=== PATIENT | female | born 1930 | race Caucasian/White ===

== ENCOUNTER 2017-02-13 10:13 | Emergency (ER) | payer OTHER ==
[~2017-02-13] VITALS: Ht 152.4 cm; Wt 54.4 kg
--- NOTE | 2017-02-13 10:20 | NUR ---
BIB SELF C/O DIARRHEA S/P TAKING LAXATIVE FOR CONSTIPATION, NAD NOTED, VSS, AAOX4, WAITIN FOR MD WERNER.
[2017-02-13 10:48] LABS: BASOPHILS # (AUTO) 0.2 /CMM (0.0-0.2); BASOPHILS % (AUTO) 1.9 % (0.0-2.0); EOSINOPHILS # (AUTO) 0.2 /CMM (0.0-0.7); EOSINOPHILS % (AUTO) 1.8 % (0.0-6.0); HEMATOCRIT 41 % (33-45); LYMPHOCYTES # (AUTO) 1.6 /CMM (0.8-4.8); LYMPHOCYTES % (AUTO) 16.7 % (20.0-44.0); MEAN CORPUSCULAR HEMOGLOBIN 27 PG (26.0-33.0); MEAN CORPUSCULAR HGB CONC 32 g/dl (31.0-36.0); MEAN CORPUSCULAR VOLUME 83 fL (82-100); MONOCYTES # (AUTO) 0.7 /CMM (0.1-1.30); MONOCYTES % (AUTO) 7.7 % (2.0-12.0); NEUTROPHILS # (AUTO) 6.7 /CMM (1.8-8.9); NEUTROPHILS % (AUTO) 71.9 % (43.0-81.0); PLATELET COUNT (AUTO) 202 /CMM (150-450); RDW COEFFICIENT OF VARIATION 15.2 (11.5-15.0); RED BLOOD CELL COUNT(AUTO) 4.92 MIL/uL (4.0-5.2); WHITE BLOOD COUNT (AUTO) 9.4 K/uL (4.3-11.0)
[2017-02-13 10:57] LABS: CALCIUM, SERUM 8.5 mg/dL (8.5-10.1); CARBON DIOXIDE 29 mmol/L (21-32); CHLORIDE 104 mmol/L (98-107); CREATININE 0.9 mg/dL (0.6-1.3); GLUCOSE 101 mg/dL (74-106); POTASSIUM 4.8 mmol/L (3.5-5.1); SODIUM SERUM 137 mmol/L (136-145); UREA NITROGEN, BLOOD 19 mg/dL (7-18)
[2017-02-13 10:58] LABS: LIPASE 146 U/L (73-393)
[2017-02-13] MEDS ORDERED: IV NS 0.9% 1,000 ML BAG IV ONE (11:00)
--- NOTE | 2017-02-13 11:40 | NUR ---
PT TO CTSCAN
[2017-02-13] MEDS ORDERED: IOHEXOL-300 100 ML VIAL IV ONE (11:44)
[2017-02-13] MEDS ORDERED: IV NS 0.9% 250 ML IV ONE (11:44)
--- NOTE | 2017-02-13 13:21 | NUR ---
IV removed. Catheter intact and site benign. Pressure and 4x4 applied to site. No bleeding noted.
--- NOTE | 2017-02-13 13:21 | NUR ---
Patient discharged to home in stable condition. Written and verbal after care instructions given. Patient verbalizes understanding of instruction.
[2017-02-13 13:22] VITALS: BP 145/86
== END 2017-02-13 13:23 | disposition home or self-care (01) ==
LOC: ER 10:15
DX: R19.7 Diarrhea, unspecified (principal); I10 Essential (primary) hypertension
CPT/HCPCS: 36415; 74160; 80048; 83690; 85025; 96360; 99285; 99406; A4606; J7030; J7050; Q9967; Z7610

== ENCOUNTER 2017-07-05 17:13 | Inpatient (IN) | payer OTHER ==
[~2017-07-05] VITALS: Ht 149.9 cm; Wt 67.1 kg
[2017-07-05] MEDS ORDERED: ONDANSETRON HCL/PF 4 MG/2 ML VIAL IVP ONE (17:30)
[2017-07-05] MEDS ORDERED: MORPHINE SULFATE INJ 2 MG/ML DISP.SYRIN IV ONE (17:30)
[2017-07-05] MEDS ORDERED: IV NS 0.9% 1,000 ML BAG IV ONE (17:30)
--- NOTE | 2017-07-05 17:34 | NUR ---
RECIEVED PT TO ED BED 10, PT WAS [id number] FROM [employer], LEFT HIP PAIN S/P GLF. NO KO. +LEFT LEG SHORTENING. A/OX3, NAD RR EVEN ADN UNLABORED. SKIN IS WARM AND NON DIAPHORETIC. SEEN AND EVALUATED BY DR KARIMI
[2017-07-05 17:52] LABS: BASOPHILS # (AUTO) 0.1 /CMM (0.0-0.2); BASOPHILS % (AUTO) 1.5 % (0.0-2.0); EOSINOPHILS % (AUTO) 0.2 % (0.0-6.0); HEMATOCRIT 40 % (33-45); HEMOGLOBIN 13.3 g/dL (11.5-14.8); LYMPHOCYTES # (AUTO) 0.9 /CMM (0.8-4.8); LYMPHOCYTES % (AUTO) 13.2 % (20.0-44.0); MEAN CORPUSCULAR HGB CONC 33 g/dl (31.0-36.0); MEAN CORPUSCULAR VOLUME 82 fL (82-100); MONOCYTES # (AUTO) 0.7 /CMM (0.1-1.30); MONOCYTES % (AUTO) 10.3 % (2.0-12.0); NEUTROPHILS # (AUTO) 5.5 /CMM (1.8-8.9); NEUTROPHILS % (AUTO) 74.8 % (43.0-81.0); PLATELET COUNT (AUTO) 156 /CMM (150-450); RDW COEFFICIENT OF VARIATION 14.2 (11.5-15.0); RED BLOOD CELL COUNT(AUTO) 4.87 MIL/uL (4.0-5.2); WHITE BLOOD COUNT (AUTO) 7.2 K/uL (4.3-11.0)
[2017-07-05 17:59] LABS: CALCIUM, SERUM 8.3 mg/dL (8.5-10.1); CARBON DIOXIDE 26 mmol/L (21-32); CHLORIDE 102 mmol/L (98-107); GLUCOSE 125 mg/dL (74-106); POTASSIUM 4.1 mmol/L (3.5-5.1); SODIUM SERUM 135 mmol/L (136-145); UREA NITROGEN, BLOOD 16 mg/dL (7-18)
[2017-07-05 18:07] LABS: TROPONIN I < 0.017 ng/mL (0.00-0.056)
[2017-07-05] MEDS ORDERED: MORPHINE SULFATE INJ 4 MG/ML DISP.SYRIN ONE (18:22)
[2017-07-05] MEDS ORDERED: ONDANSETRON HCL/PF 4 MG/2 ML VIAL ONE (18:22)
[2017-07-05 18:25] LABS: INR 1.01 (0.85-1.15)
--- NOTE | 2017-07-05 18:27 | NUR ---
LOW O2 SAT ROOM AIR NO DISTRESS. PLACED ON 2 LPM VIA NC
--- NOTE | 2017-07-05 18:27 | NUR ---
VERBAL ORDER DR KARIMI URINARY CATHETER
--- NOTE | 2017-07-05 19:02 | NUR ---
GAVE REPORT TO RO FOR [place]
--- NOTE | 2017-07-05 19:05 | NUR ---
I called [employer] and a panel call was placed. Moises Nunez couldnt be reached at this time and a page was sent out to him.
--- NOTE | 2017-07-05 19:20 | NUR ---
CHRISTIN Fontaine was called and Dr. Tobar was paged.
[2017-07-05 20:00] VITALS: BP 146/82
--- NOTE | 2017-07-05 20:05 | NUR ---
REPORT GIVEN TO KSENIA/ANA M ON BEHALF OF PRIMARY NURSE ADELSO. TO BE TRANSPORTED TO MS FLOOR.
--- NOTE | 2017-07-05 20:10 | NUR ---
MS/RN OPENING NOTES PT RECEIVED FROM ER VIA [facility], A/OX2. PLACED ON 2L O2 VIA NC, BREATHING EVEN AND UNLABORED. SOB NOTED WITH EXERTION OF TRANSFERRING FROM GURNEY TO BED. FRIEND, CONCEPCIÓN NEGRO [phone] AT BEDSIDE. IV TO RAC PATENT AND INTACT. GAXIOLA IN PLACE AND DRAINING TO GRAVITY. BED IN LOW/LOCKED POSITION WITH CALL LIGHT IN REACH. SIDE RAILS UPX2. ORIENTED PT TO ROOM AND CALL LIGHT. PER ER STAFF, DR CHAMBERS NOTIFIED AND ASKED TO KEEP PT NPO POST MIDNIGHT, WILL COME TO EVALUATE HER IN AM. WILL CONTINUE TO MONITOR
[2017-07-05] MEDS ORDERED: IV NS 0.9% 1,000 ML IV PRN (20:56)
[2017-07-05] MEDS ORDERED: MORPHINE SULFATE INJ 2 MG/ML DISP.SYRIN IV PRN (21:00)
[2017-07-05] MEDS ORDERED: ONDANSETRON HCL/PF 4 MG/2 ML VIAL IVP PRN (21:00)
[2017-07-05] MEDS ORDERED: ACETAMINOPHEN 325 MG TABLET PO PRN (21:00)
[2017-07-05] MEDS ORDERED: ZOLPIDEM TARTRATE 5 MG TABLET PO PRN (21:00)
[2017-07-05] MEDS ORDERED: Z GUARD REMEDY 2 OZ OINT TP PRN (21:00)
[2017-07-06] VITALS (7 sets, daily range): BP systolic 127–140; BP diastolic 55–80
--- NOTE | 2017-07-06 03:30 | NUR ---
MS/RN NOTES PT APPEARS ANXIOUS AND WITH LABORED BREATHING. PT "WANTS TO GET OUT OF HERE. LET ME JUST GET TO MY CAR". PT CONNECTED TO PULSE OX, SHOWING SPO2 87%. HOB ELEVATED FOR MAXIMAL LUNG EXPANSION AND INCREASED SPO2 TO 5L VIA SIMPLE MASK, SPO2 INCREASED TO 96%. REORIENTED PT AND EMOTIONAL SUPPORT PROVIDED. BREATHING RESUMED TO UNLABORED. PT FALLING BACK ASLEEP, WILL KEEP ON CONTINUOUS PULSE OX FOR MONITORING
[2017-07-06 06:41] LABS: BASOPHILS % (AUTO) 0.2 % (0.0-2.0); HEMATOCRIT 36 % (33-45); HEMOGLOBIN 12.1 g/dL (11.5-14.8); LYMPHOCYTES # (AUTO) 0.9 /CMM (0.8-4.8); LYMPHOCYTES % (AUTO) 9.6 % (20.0-44.0); MEAN CORPUSCULAR HGB CONC 34 g/dl (31.0-36.0); MEAN CORPUSCULAR VOLUME 83 fL (82-100); MONOCYTES # (AUTO) 0.9 /CMM (0.1-1.30); MONOCYTES % (AUTO) 9.6 % (2.0-12.0); NEUTROPHILS # (AUTO) 7.4 /CMM (1.8-8.9); NEUTROPHILS % (AUTO) 80.6 % (43.0-81.0); PLATELET COUNT (AUTO) 125 /CMM (150-450); RDW COEFFICIENT OF VARIATION 15.1 (11.5-15.0); RED BLOOD CELL COUNT(AUTO) 4.32 MIL/uL (4.0-5.2); WHITE BLOOD COUNT (AUTO) 9.2 K/uL (4.3-11.0)
[2017-07-06 07:09] LABS: CALCIUM, SERUM 7.8 mg/dL (8.5-10.1); CARBON DIOXIDE 25 mmol/L (21-32); CHLORIDE 103 mmol/L (98-107); CREATININE 0.9 mg/dL (0.6-1.3); GLUCOSE 121 mg/dL (74-106); MAGNESIUM 1.6 mg/dL (1.8-2.4); POTASSIUM 4.2 mmol/L (3.5-5.1); SODIUM SERUM 137 mmol/L (136-145); UREA NITROGEN, BLOOD 14 mg/dL (7-18)
--- NOTE | 2017-07-06 07:15 | NUR ---
RN NOTES: PATIENT RESTING IN BED. NONLABORED BREATHING NOTED ON 5 L FACIAL MASK. DENYING PAIN AT THE MOMENT. IV SITE ON RFA GAUGE 22 PATENT AND INTACT. HOD ELEVATED. BED IN LOWEST LOCKED POSITION. CALL LIGHT WITHIN REACH. WILL CONTINUE TO MONITOR
--- NOTE | 2017-07-06 07:15 | NUR ---
RN NOTES: PATIENT RESTING IN BED. NONLABORED BREATHING NOTED ON 5 L NASAL CANNULA. DENYING PAIN AT THE MOMENT. IV SITE ON RFA GAUGE 22 PATENT AND INTACT. HOD ELEVATED. BED IN LOWEST LOCKED POSITION. CALL LIGHT WITHIN REACH. WILL CONTINUE TO MONITOR
--- NOTE | 2017-07-06 07:36 | NUR ---
MS/RN CLOSING NOTES PT RESTING COMFORTABLY IN BED. CURRENTLY ON 5L O2 VIA SIMPLE MASK SPO2 97%. BREATHING IS EVEN AND UNLABORED AT THIS TIME. DENIES SOB, DENIES PAIN. REFUSING PAIN MEDICATION. IV PULLED OUT, REINSERTED TO RFA #22. WRAPPED WITH KERLIX. IVF ON HOLD AT THIS TIME. HOB ELEVATED FOR INCREASED LUNG EXPANSION. KEPT PT COMFORTABLE DURING THE SHIFT. ALL NEEDS MET. REORIENTED PRN. GAXIOLA IN PLACE AND DRAINING TO GRAVITY. BED IN LOW/LOCKED POSITION WITH CALL LIGHT IN REACH. SIDE RAILS UPX2. ENDORSED TO DAY SHIFT RN [place].
[2017-07-06 07:44] LABS: CHOLESTEROL 142 mg/dL (<200); HDL CHOLESTEROL 67 mg/dL (40-60); LDL 66 mg/dL (0-99); THYROID STIMULATING HORMONE 0.611 uIU/mL (0.358-3.74); TRIGLYCERIDES 56 mg/dL (30-150)
--- NOTE | 2017-07-06 09:49 | NUR ---
Social service consult requested by Dr. Nunez for homelessness and possible fracture. Pt. is a 87 year old female who was admitted to [facility] for Left hip fracture. SW met with pt. bedside. Pt. is alert and oriented x 4. Pt. is pleasant and cooperative with SW. Pt. states she is homeless and has been living in her car for the past two years. Prior to living in her car, pt. was living in her home. Home sold her home and lost money on it and has been homeless since then. Pt. has no family and has friends who provide some social support. Pt's emergency contact is her friend Stephanie Akbar . Pt. is willing to go to a [facility] facility for rehabilitation. meat and seafood manager Guerita is aware of pt's disposition. Pt. receives approximately $600/ month in SSI. Pt. stated she receives only $600 due to early nursing home. SW to offer pt. homeless resources prior to discharge. No other social service needs are requested at this time. SW is available, if needed.
[2017-07-06] MEDS ORDERED: FUROSEMIDE 20 MG/2 ML VIAL IV ONE (10:00)
[2017-07-06] MEDS ORDERED: diphenhydrAMINE HCL 50 MG/ML VIAL IV PRN (10:00)
--- NOTE | 2017-07-06 10:02 | NUR ---
RN NOTES: PER YVES ADKINS NP- ADONAY ORDERED. PER HER ORDERS AND DR BUENO OK TO ADMINISTER MAGNESIUM AND LASIX
[2017-07-06] MEDS: Magnesium 1GM/D5W 100ML PREMIX 100 ML IV SCH ×2 (11:16→12:45)
--- NOTE | 2017-07-06 12:10 | NUR ---
RN NOTES: SPOKE TO PATIENT'S FRIEND, MARY NEGRO. SHE RECALLS, PATIENT IS ALLERGIC TO SULFA AND PENICILLINS. NO ALLERGIC REACTIONS NOTED SO FAR. WILL CONTINUE TO MONITOR. PATIENT UNABLE TO RECALL HER ALLERGIES
--- NOTE | 2017-07-06 12:52 | NUR ---
WOUND CARE CONSULT: PT PRESENTS WITH LEFT BUTTOCK BRUISING, STAINING OF SKIN ON BUTTOCKS AND LOWER LEGS. LOWER LEGS AND FEET HAVE THICKENED DARK SKIN WITH DRYNESS AND DEBRIS. EDEMA NOTED TO LOWER LEGS WHICH IS RESOLVING WITH LEG ELEVATION. PT NOTED TO HAVE RASH TO LEFT BREASTFOLD AND REDNESS TO RT BREASTFOLD. ALL SKIN PROTECTION AND SKIN CARE RECOMMENDATIONS DISCUSSED WITH NURSING STAFF. PT ON ANIYA ISOFLEX LOW AIRLOSS BED. WILL SEE PRN. ZUNIGA IN AGREEMENT WITH PLAN OF CARE. Addendum: 07/06/17 at 1254 by MJ AREVALO WNDNU Amended: Links added.
[2017-07-06] MEDS ORDERED: VITAMINS A AND D 56.7 GM TUBE TP PRN (13:00)
--- NOTE | 2017-07-06 13:58 | NUR ---
RN NOTES: ADARSH ROSENBAUM, ALBUTEROL Q 4 HOURS PRN
[2017-07-06 14:05] LABS: APPEARANCE,URINE CLEAR (CLEAR); BILIRUBIN,URINE NEGATIVE (NEGATIVE); BLOOD, URINE 2+ Ery/uL (NEGATIVE); COLOR,URINE YELLOW (YELLOW); KETONES,URINE NEGATIVE (NEGATIVE); LEUKOCYTE ESTERASE ,URINE NEGATIVE (NEGATIVE); NITRITE, URINE NEGATIVE (NEGATIVE); PH,URINE 5.5 (5.0-8.0); PROTEIN,URINE NEGATIVE (NEGATIVE); UGLUCOSE NEGATIVE (NEGATIVE); UROBILINOGEN,URINE 0.2 EU/dL (0.2)
[2017-07-06 14:16] LABS: WBC,URINE 0-2 /HPF (0-3)
[2017-07-06 14:21] LABS: BACTERIA,URINE Few /HPF (None Seen); SQUAMOUS EPITHELIAL CELL,UR Few /HPF (None Seen)
[2017-07-06] MEDS: ALBUTEROL FS 2.5 MG/0.5 ML VIAL.NEB NEB PRN ×2 (14:42→20:37)
[2017-07-06] MEDS ORDERED: ACETYLCYSTEINE 10% SOLN 400 MG/4 ML VIAL NEB SCH (16:30)
--- NOTE | 2017-07-06 16:35 | NUR ---
RN NOTES: PER YVES ADKINS, MUCOMYST 200 MG (10% 4 ML) SOLUTION SCHEDULED
[2017-07-06] MEDS: CLOTRIMAZOLE 1% 15 GM TUBE TP SCH (17:20)
--- NOTE | 2017-07-06 17:36 | NUR ---
RN NOTES: PATIENT BACK ON 4 L NASAL CANNULA. INFORMED RT, LINDA, OF MUCOMYST ORDER
--- NOTE | 2017-07-06 17:39 | NUR ---
RN NOTES: MUCOMYST ORDER FREQUENCY CHANGED TO Q 4 HOUR PER KERSEY DEPARTMENT SUPERVISOR ORDERS. SPOKE WITH SHAYNA FROM PHARMACY
--- NOTE | 2017-07-06 18:00 | NUR ---
RN NOTES: PER YVES ADKINS, APPLY DVT PUMPS. MEDICAL CODING INSTRUCTOR NOTIFIED OF EDEMA PRESENT ON PATIENT'S LOWER EXTREMITIES. RESULTS PENDING FOR DUPLEX ON LOWER EXTREMITIES. PER YVES ADKINS, APPLY DVT PUMPS IF STUDY RESULTS ARE NEGATIVE AND THERE IS NO SIGNS OF DVT. ALSO PER MEDICAL CODING INSTRUCTOR, AGGRESSIVE PULMONARY TOILETING
--- NOTE | 2017-07-06 19:08 | NUR ---
RN NOTES: PER YVES ADKINS, ATIVAN 2 MG ONCE IF NEEDED ALSO PATIENT TO HAVE A SITTER
[2017-07-06] MEDS: ACETYLCYSTEINE 10% SOLN 400 MG/4 ML VIAL NEB SCH ×2 (19:30→20:37)
[2017-07-06] MEDS ORDERED: LORAZEPAM 1 MG TABLET PO ONE (19:30)
--- NOTE | 2017-07-06 19:30 | NUR ---
MS RN NOTE PATIENT RESTING IN BED. NONLABORED BREATHING NOTED ON 5 L FACIAL MASK. DENYING PAIN AT THE MOMENT. IV SITE ON RFA GAUGE 22 PATENT AND INTACT. HOB ELEVATED. SITTER AT BEDSIDE. BED IN LOWEST LOCKED POSITION. CALL LIGHT WITHIN REACH. WILL CONTINUE TO MONITOR
--- NOTE | 2017-07-06 19:30 | NUR ---
RN NOTES: PATIENT RESTING IN BED. NONLABORED BREATHING NOTED ON 5 L FACIAL MASK, PATIENT ON CONTINUOS OXYGEN MONITOR. DENYING PAIN AT THE MOMENT. IV SITE ON RFA GAUGE 22 PATENT AND INTACT. HOD ELEVATED. BED IN LOWEST LOCKED POSITION. PATIENT OFFERED DINNER NOW, REFUSING. OFFERED SNACKS WELL. PATIENT STILL REFUSING TO SIGN CONSENT FOR SURGERY. YVES ADKINS NP, NOTIFIED. ORDER IS TO PLACE PATIENT NPO AFTER MIDNIGHT. PER PATIENT, " I AM STILL THINKING ABOUT IT." PATIENT KEPT CLEAN AND DRY DURING SHIFT. CALL LIGHT WITHIN REACH. WILL CONTINUE TO MONITOR. ENDORSED TO NEXT SHIFT
--- NOTE | 2017-07-06 19:30 | NUR ---
RN NOTES: MUCOMYST ORDER TO BE EDIT BACK TO Q 8 HOURS PER RT RECOMMENDATIONS AND TO BE ADMINISTERED WITH ALBUTEROL. ENDORSED TO [facility] VIR[facility]ONTES
[2017-07-07] MEDS ORDERED: HALOPERIDOL DECANOATE IM 100 MG/ML AMPUL IM ONE
--- NOTE | 2017-07-07 00:08 | NUR ---
PT W/ AN ORDER FOR ATIVAN 2MG PO X ONE AT 1930 WHICH WAS NOT ADMINISTERED SINCE THE PT DID NOT NEED THE MEDICATION AT THAT TIME. PT VERY RESTLESS AT THIS TIME , CONSTANTLY REMOVING HER O2 MASK, WHICH MADE HER O2 SATURATION TO DROP, AND ALSO TRYING TO GET OUT OF BED. SPOKE TO RAQUEL GUTIERREZ , PER HER OK TO ADMINISTER THE MEDICATION NOW. ATTEMPTED TO PULL OUT THE MEDICATION FROM THE OMNICELL BUT UNABLE. CALLED PHARMACY AND SPOKE TO JOHNNY FOR POSSIBLE CHANGE OF ADMINISTRATION TIME. PER HER OK TO OVER RIDE THE MEDICATION SINCE IT'S ALREADY VERIFIED BY PHARMACY.
[2017-07-07] MEDS: ACETYLCYSTEINE 10% SOLN 400 MG/4 ML VIAL NEB SCH ×5 (00:24→15:30)
[2017-07-07] MEDS: ALBUTEROL FS 2.5 MG/0.5 ML VIAL.NEB NEB PRN ×2 (00:24→03:59)
[2017-07-07] MEDS ORDERED: LORAZEPAM 1 MG TABLET ONE (00:27)
[2017-07-07] MEDS: QUETIAPINE FUMARATE 25 MG TABLET PO SCH ×2 (01:32→09:00)
--- NOTE | 2017-07-07 06:33 | NUR ---
MS RN NOTE PATIENT SLEEPING AT THIS TIME. ALL NEEDS MET AND ATTENDED TO. WILL ENDORSE TO DAY SHIFT FOR [place].
[2017-07-07 06:45] LABS: CALCIUM, SERUM 7.7 mg/dL (8.5-10.1); CARBON DIOXIDE 27 mmol/L (21-32); CHLORIDE 101 mmol/L (98-107); CREATININE 0.9 mg/dL (0.6-1.3); GLUCOSE 132 mg/dL (74-106); MAGNESIUM 1.9 mg/dL (1.8-2.4); PHOSPHORUS 2.1 mg/dL (2.5-4.9); SODIUM SERUM 135 mmol/L (136-145); UREA NITROGEN, BLOOD 18 mg/dL (7-18)
[2017-07-07 06:46] LABS: BASOPHILS % (AUTO) 0.1 % (0.0-2.0); HEMATOCRIT 36 % (33-45); LYMPHOCYTES # (AUTO) 0.5 /CMM (0.8-4.8); LYMPHOCYTES % (AUTO) 4.4 % (20.0-44.0); MEAN CORPUSCULAR HGB CONC 33 g/dl (31.0-36.0); MEAN CORPUSCULAR VOLUME 83 fL (82-100); MONOCYTES # (AUTO) 0.6 /CMM (0.1-1.30); MONOCYTES % (AUTO) 5.2 % (2.0-12.0); NEUTROPHILS # (AUTO) 11.1 /CMM (1.8-8.9); NEUTROPHILS % (AUTO) 90.3 % (43.0-81.0); PLATELET COUNT (AUTO) 122 /CMM (150-450); RDW COEFFICIENT OF VARIATION 14.8 (11.5-15.0); WHITE BLOOD COUNT (AUTO) 12.3 K/uL (4.3-11.0)
--- NOTE | 2017-07-07 07:30 | NUR ---
RN MS NOTES PT IN BED, AWAKE, ALERT, VERBALLY RESPONSIVE, DENIES PAIN AT THIS TIME, ON O2 AT 5LPM VIA MASK, O2 SAT OF 92%, WITH EPISODES OF TRYING TO REMOVE O2 MASK, SITTER AT BEDSIDE, REORIENTATION PROVIDED, CALL LIGHT WITHIN REACH, SAFETY PRECAUTIONS OBSERVED.
[2017-07-07 08:00] VITALS: BP 132/77
[2017-07-07] MEDS: CLOTRIMAZOLE 1% 15 GM TUBE TP SCH ×2 (09:05→17:09)
--- NOTE | 2017-07-07 09:35 | NUR ---
RN MS NOTES PT IN BED, AWAKE, SEEN BY DR. XIMENA MD INFORMED OF PT'S REFUSALS WITH MEDS, ORDERED PSYCH CONSULT AND PODIATRY CONSULT, NOTED AND CARRIED OUT, KEPT PT COMFORTABLE IN BED, F/C DRAINING WELL.
[2017-07-07] MEDS ORDERED: ENOXAPARIN SODIUM 30 MG/0.3 ML DISP.SYRIN SQ SCH (10:30)
[2017-07-07] MEDS: NEUTRA PHOS 1 POWD.PACKET PO SCH ×2 (11:13→17:09)
[2017-07-07] MEDS ORDERED: QUETIAPINE FUMARATE 25 MG TABLET PO PRN (13:30)
[2017-07-07] MEDS: IPRATROPIUM NEB FS 0.5 MG/2.5 ML AMPUL.NEB NEB SCH ×2 (14:02→20:19)
[2017-07-07] MEDS: ALBUTEROL FS 2.5 MG/0.5 ML VIAL.NEB NEB SCH ×2 (14:02→20:19)
--- NOTE | 2017-07-07 14:17 | NUR ---
RN MS NOTES PT IN BED, RESTING, ALERT WITH PERIODS OF BEING FORGERFUL, SEEN AND EXAMINED BY DR. [place], ORDERS GIVEN, PT ON CONTINUOUS O2 VIA MASK, BREATHING TREATMENT GIVEN BY RT ORDERED, SAFETY PRECAUTIONS OBSERVED.
[2017-07-07] MEDS: SOD FERRIC GLUC 125 MG in IV NS 0.9% 100 ML IV SCH (15:30)
[2017-07-07 16:00] VITALS: BP 133/71
--- NOTE | 2017-07-07 19:00 | NUR ---
MS RN NOTES RECEIVED PT IN BED, RESTING AT THIS TIME, AROUSABLE, A/O X1. VERBALLY RESPONSIVE. ON 5 LPM OF 02 VIA MASK , SATING 95 %. NO S/S OF DISTRESS NOR SOB. RESPIRATION IS EVEN AND UNLABORED. NO C/O PAIN OR DISCOMFORT AT THIS TIME. IV SITE ON RFA INTACT AND PATENT, NO S/S OF INFILTRATION NOTED. ON 1:1 SITTER FOR SAFETY. ALL NEEDS ATTENDED AND MET. KEPT COMFORTABLE. SAFETY PRECAUTIONS OBSERVED. CALL LIGHT WITHIN REACH. WILL CONT TO MONITOR.
[2017-07-07 20:00] VITALS: BP 102/58
--- NOTE | 2017-07-07 22:00 | NUR ---
RECEIVED AN ORDER FROM YVES ADKINS NP TO TRANSFER PT TO TELE. AN AM BARBER CHARGE NURSE AND ANDREIA STITCHING DEPARTMENT SUPERVISOR AWARE.
[2017-07-07] MEDS ORDERED: LEVOFLOXACIN 500 MG /D5W 100ML 100 ML IV ONE (22:19)
[2017-07-07] MEDS ORDERED: LEVOFLOXACIN 500 MG /D5W 100ML 500 MG in PREMIX 1 EA IV ONE (23:00)
[2017-07-08] VITALS: BP 126/65
--- NOTE | 2017-07-08 00:14 | NUR ---
REPORT GIVEN AND ENDORSED PT ACCORDINGLY TO ANA M COONEY. PT REMAINS A/O X1, VERBALLY RESPONSIVE, ON 02 @ 5LPM VIA MASK, JANELLE WELL. O2 SAT IS 95 %. NO C/O PAIN OR DISCOMFORT. TRANSFERRED PT TO [facility]-2 VIA ACLS PROTOCOL, BELONGINGS SENT WITH THE PT.
--- NOTE | 2017-07-08 00:15 | NUR ---
TELE/RN NOTES PATIENT TRANSFERED FROM RM 205 FOR [place], ON TELE AT SR 80'S, ALERT X2, REQUIRE FREQUENT REORIENTATION AND SITTER PATIENT ATTEMPTS TO PULL OUT IV LINE. , IV ON RFA GAUGE 22, WILL CONTINUE TO MONITOR. , BED IN LOCK POSITION. RECEIVED REPORT FROM RN LIZ, FOR [place].
[2017-07-08] MEDS: IPRATROPIUM NEB FS 0.5 MG/2.5 ML AMPUL.NEB NEB SCH ×4 (01:14→21:28)
[2017-07-08] MEDS: ALBUTEROL FS 2.5 MG/0.5 ML VIAL.NEB NEB SCH ×4 (01:14→21:28)
[2017-07-08] MEDS: MORPHINE SULFATE INJ 4 MG/ML DISP.SYRIN IV PRN (02:37)
--- NOTE | 2017-07-08 02:44 | NUR ---
TELE/RN NOTES PAIN MEDICATED BEFORE DIAPER CHANGES, ON MORPHINE IV PER MD ORDER, WILL MONITOR EFFECTIVENESS
[2017-07-08 04:00] VITALS: BP 132/72
--- NOTE | 2017-07-08 06:34 | NUR ---
326-2 TELE/RN NOTES PATIENT ABLE TO SLEEP AND AWAKEN INTERMITENTLY, REQUIRE FREQUENT MONITORING AND WITH SITTER FOR SAFETY, ABLE TO COOPERATE, IV PATENT, WITH NO S/S OF INFILTRATION, WILL ENDORSE TO AM RN FOR [place]. BED IN LOCK POSITION,.
[2017-07-08] MEDS: ACETYLCYSTEINE 10% SOLN 400 MG/4 ML VIAL NEB SCH ×2 (07:30→15:29)
--- NOTE | 2017-07-08 08:00 | NUR ---
MS RN RECEIVED ON BED, AWAKE,ALERT X1-2,NOT IN ANY FORM OF DISTRESS, ON O2 MASK, SATURATING 97% AT THIS TIME,NO SOB NOTED, W/ SITTER FOR SAFETY AND COMFORT.
[2017-07-08 08:30] LABS: EOSINOPHILS % (AUTO) 0.1 % (0.0-6.0); HEMATOCRIT 37 % (33-45); HEMOGLOBIN 12.3 g/dL (11.5-14.8); LYMPHOCYTES # (AUTO) 0.7 /CMM (0.8-4.8); LYMPHOCYTES % (AUTO) 6.7 % (20.0-44.0); MEAN CORPUSCULAR HGB CONC 33 g/dl (31.0-36.0); MEAN CORPUSCULAR VOLUME 83 fL (82-100); MONOCYTES # (AUTO) 0.6 /CMM (0.1-1.30); MONOCYTES % (AUTO) 5.8 % (2.0-12.0); NEUTROPHILS # (AUTO) 9.3 /CMM (1.8-8.9); NEUTROPHILS % (AUTO) 87.4 % (43.0-81.0); PLATELET COUNT (AUTO) 118 /CMM (150-450); RDW COEFFICIENT OF VARIATION 14.9 (11.5-15.0); RED BLOOD CELL COUNT(AUTO) 4.46 MIL/uL (4.0-5.2); WHITE BLOOD COUNT (AUTO) 10.6 K/uL (4.3-11.0)
--- NOTE | 2017-07-08 08:45 | NUR ---
MS ANA M CAUSEYOA AT BEDSIDE, PREFER TO GIVE MEDS LATER THIS MORNING. PATIENT EATING.
[2017-07-08 08:50] LABS: CALCIUM, SERUM 7.8 mg/dL (8.5-10.1); CARBON DIOXIDE 27 mmol/L (21-32); CHLORIDE 105 mmol/L (98-107); CREATININE 0.8 mg/dL (0.6-1.3); GLUCOSE 97 mg/dL (74-106); PHOSPHORUS 3.1 mg/dL (2.5-4.9); POTASSIUM 4.2 mmol/L (3.5-5.1); SODIUM SERUM 140 mmol/L (136-145); UREA NITROGEN, BLOOD 26 mg/dL (7-18)
[2017-07-08] MEDS: ESCITALOPRAM OXALATE (10 MG) 10 MG TABLET PO SCH (12:09)
[2017-07-08] MEDS: CLOTRIMAZOLE 1% 15 GM TUBE TP SCH ×2 (12:10→17:13)
[2017-07-08] MEDS: ENOXAPARIN SODIUM 30 MG/0.3 ML DISP.SYRIN SQ SCH (12:12)
[2017-07-08 16:00] VITALS: BP 142/75
[2017-07-08] MEDS: SOD FERRIC GLUC 125 MG in IV NS 0.9% 100 ML IV SCH (17:11)
--- NOTE | 2017-07-08 20:00 | NUR ---
MS RN NOTES TRANSFERRED TO MS 2 BY BED.REPORT GIVEN TO TRISTIN FOR [place].
--- NOTE | 2017-07-08 20:40 | NUR ---
MS RN NOTES RECEIVED PT FROM [facility] ENDORSED BY ANA M VAZ. PT IS AWAKE, A/O X 1 , FORGETFUL. VERBALLY RESPONSIVE. ON O2 @ 5LPM VIA MASK , 02 SATURATION IS 95 % AT THIS TIME. IV SITE ON RFA INTACT AND PATENT, NO S/S OF INFILTRATION NOTED. ON 1: 1 SITTER FOR SAFETY. DENIES ANY PAIN OR DISCOMFORT AT THIS TIME. ALL NEEDS ATTENDED AND MET. KEPT COMFORTABLE. CALL LIGHT WITHIN REACH. WILL CONTINUE TO MONITOR PT CLOSELY.
[2017-07-08] MEDS: LEVOFLOXACIN 250 MG /D5W 50 ML 250 MG in PREMIX 1 EA IV SCH (22:18)
--- NOTE | 2017-07-08 23:00 | NUR ---
PT PULLED OUT IV LINE ON RFA , PRESSURE APPLIED . NO BLEEDING NOTED. INSERTED IV ON RIGHT HAND G# 20 X 1 ATTEMPT , WITH GOOD VENOUS RETURN, PT JANELLE WELL.
--- NOTE | 2017-07-09 00:41 | NUR ---
PT WITH MULTIPLE ATTEMPTS OF REMOVING O2 MASK ,EVEN WITH MULTIPLE REORIENTATION, REDIRECTION, NON PHARMACOLOGICAL INTERVENTION AND EXPLANATION NOT TO REMOVE MASK , PT STILL REMOVES 02 MASK,AND 02 SATURATION GOES DOWN TO 87 %, PT WITH SITTER AND TENDS TO BE VERY COMBATIVE TO THE STAFF. PT ALSO PULLED OUT IV ON RIGHT HAND, PRESSURE APPLIED WITH NO BLEEDING NOTED. PLACED A CALL TO RAQUEL INSTRUMENTATION ENGINEERING TECHNICIAN WITH ORDER FOR ACUTE MEDICAL RESTRAINT: BILATERAL SOFT RESTRAINT, NOTED AND CARRIED OUT.
--- NOTE | 2017-07-09 00:45 | NUR ---
INSERTED IV ON RIGHT WRIST G # 22, X 1 ATTEMPT , WITH GOOD VENOUS RETURN PT JANELLE WELL. WILL MONITOR CLOSELY.
[2017-07-09] MEDS: IPRATROPIUM NEB FS 0.5 MG/2.5 ML AMPUL.NEB NEB SCH ×4 (02:38→19:51)
[2017-07-09] MEDS: ALBUTEROL FS 2.5 MG/0.5 ML VIAL.NEB NEB SCH ×4 (02:38→19:51)
[2017-07-09] MEDS: ACETYLCYSTEINE 10% SOLN 400 MG/4 ML VIAL NEB SCH ×4 (02:38→23:30)
--- NOTE | 2017-07-09 06:34 | NUR ---
MS RN NOTES PT IS AWAKE, A/O X 1 , FORGETFUL. VERBALLY RESPONSIVE. ON O2 @ 5LPM VIA MASK , 02 SATURATION IS 95 % AT THIS TIME. IV SITE ON RIGHT WRIST INTACT AND PATENT, NO S/S OF INFILTRATION NOTED. ON 1: 1 SITTER FOR SAFETY. BILATERAL SOFT RESTRAINTS APPLIED FOR SAFETY ORDERED. PT WITH EPISODES OF PULLING OUT IV AND BEING AGGRESSIVE. DENIES ANY PAIN OR DISCOMFORT AT THIS TIME. ALL NEEDS ATTENDED AND MET. KEPT COMFORTABLE. CALL LIGHT WITHIN REACH. WILL ENDORSE TO NEXT SHIFT FOR [place].
--- NOTE | 2017-07-09 07:10 | NUR ---
RN NOTES PT IS LAYING DOWN IN BED, RESTING COMFORTABLY WITH SITTER AT BEDSIDE. SOFT WRIST RESTRAINTS ARE ON, NO SIGNS OF IRRITATION ON WRISTS NOTES. PT ON 5L O2 VIA MASK, RESPIRATIONS ARE EVEN AND UNLABORED. GAXIOLA CATHETER IS INTACT AND DRAINING TO GRAVITY. SAFETY MEASURES ARE IN PLACE, CALL LIGHT IS IN REACH. WILL CONTINUE TO MONITOR.
[2017-07-09 08:00] VITALS: BP 152/80
[2017-07-09 08:12] VITALS: BP 152/80
[2017-07-09] MEDS: ESCITALOPRAM OXALATE (10 MG) 10 MG TABLET PO SCH (08:13)
[2017-07-09] MEDS: CLOTRIMAZOLE 1% 15 GM TUBE TP SCH ×2 (08:14→16:04)
[2017-07-09] MEDS: ENOXAPARIN SODIUM 30 MG/0.3 ML DISP.SYRIN SQ SCH (08:15)
[2017-07-09] MEDS: SOD FERRIC GLUC 125 MG in IV NS 0.9% 100 ML IV SCH (14:07)
[2017-07-09 16:00] VITALS: BP 130/78
[2017-07-09 16:29] VITALS: BP 130/78
--- NOTE | 2017-07-09 18:37 | NUR ---
RN NOTES PT IS SITTING UP IN BED, AWAKE AND ALERT. PT ON 10L O2 VIA NASAL CANNULA, RESPIRATIONS ARE EVEN AND UNLABORED. BREATHING TREATMENTS GIVEN ORDERED. IV ON R WRIST INTACT AND SL. GAXIOLA CATHETER IS INTACT AND DRAINING, 700ML OUTPUT. ALL MEDS WERE GIVEN ORDERED AND PT NEEDS MET. SOFT WRIST RESTRAINTS ARE ON AND RELEASED THROUGHOUT THE SHIFT TO CHECK FOR SKIN BREAKDOWN AND MOBILITY. SAFETY MEASURES ARE IN PLACE, CALL LIGHT IS IN REACH, AND SITTER IS AT BEDSIDE. WILL ENDORSE TO FOREST SCIENCE PROFESSOR RN FOR CONTINUITY OF CARE.
--- NOTE | 2017-07-09 19:15 | NUR ---
MS RN NOTES RECEIVED PT IN BED, AWAKE, A/O TO SELF. VERBALLY RESPONSIVE. NO DISTRESS, NO SOB NOTED. ON 02 @ 6LPM VIA MASK , SATING 95 % AT THIS TIME. ASPIRATION PRECAUTION OBSERVED. INCENTIVE SPIROMETER ENCOURAGED. DENIES ANY PAIN OR DISCOMFORT AT THIS TIME. IV SITE ON RIGHT WRIST INTACT AND PATENT, SECURED PROPERLY. SITTER AT BEDSIDE FOR SAFETY. ALL NEEDS ATTENDED AND MET. KEPT COMFORTABLE. SAFETY PRECAUTIONS OBSERVED. WILL CONTINUE TO MONITOR.
[2017-07-09 20:00] VITALS: BP 143/82
[2017-07-09] MEDS: LEVOFLOXACIN 250 MG /D5W 50 ML 250 MG in PREMIX 1 EA IV SCH (21:52)
[2017-07-10] MEDS: ALBUTEROL FS 2.5 MG/0.5 ML VIAL.NEB NEB SCH ×3 (01:16→13:58)
[2017-07-10] MEDS: IPRATROPIUM NEB FS 0.5 MG/2.5 ML AMPUL.NEB NEB SCH ×3 (01:16→13:58)
--- NOTE | 2017-07-10 06:32 | NUR ---
MS RN NOTES PT IN BED, RESTING COMFORTABLY AT THIS TIME, AROUSES EASILY. A/O TO SELF, CONFUSED. VERBALLY RESPONSIVE. NO DISTRESS, NO SOB NOTED. ON 02 @ 8LPM VIA MASK , SATING 95 % AT THIS TIME. ASPIRATION PRECAUTION OBSERVED. INCENTIVE SPIROMETER ENCOURAGED. DENIES ANY PAIN OR DISCOMFORT AT THIS TIME. IV SITE ON RIGHT WRIST INTACT AND PATENT, SECURED PROPERLY. ALL DUE MEDS GIVEN. SITTER AT BEDSIDE FOR SAFETY. ALL NEEDS ATTENDED AND MET. KEPT COMFORTABLE. SAFETY PRECAUTIONS OBSERVED. WILL ENDORSE TO NEXT SHIFT FOR [place].
--- NOTE | 2017-07-10 07:20 | NUR ---
RN OPENING NOTES RECEIVED PATIENT IN BED, AWAKE, A/O TO SELF. VERBALLY RESPONSIVE. NO ACUTE DISTRESS, NO SOB NOTED. ON 02 @ 7LPM VIA MASK , SATING 95 % AT THIS TIME. ASPIRATION PRECAUTION OBSERVED. INCENTIVE SPIROMETER ENCOURAGED. DENIES ANY PAIN OR DISCOMFORT AT THIS TIME. IV SITE INTACT AND PATENT, SECURED PROPERLY. SITTER AT BEDSIDE FOR SAFETY. KEPT COMFORTABLE. SAFETY PRECAUTIONS OBSERVED. WILL CONTINUE TO MONITOR ACCORDINGLY
[2017-07-10] MEDS: ACETYLCYSTEINE 10% SOLN 400 MG/4 ML VIAL NEB SCH ×2 (07:45→14:03)
[2017-07-10] MEDS: MORPHINE SULFATE INJ 4 MG/ML DISP.SYRIN IV PRN (07:58)
[2017-07-10 08:00] VITALS: BP 153/69
[2017-07-10] MEDS: ESCITALOPRAM OXALATE (10 MG) 10 MG TABLET PO SCH (08:02)
[2017-07-10] MEDS: ENOXAPARIN SODIUM 30 MG/0.3 ML DISP.SYRIN SQ SCH (08:09)
[2017-07-10] MEDS: CLOTRIMAZOLE 1% 15 GM TUBE TP SCH ×2 (08:50→16:12)
[2017-07-10] MEDS: SOD FERRIC GLUC 125 MG in IV NS 0.9% 100 ML IV SCH (14:31)
[2017-07-10 16:01] VITALS: BP 144/78
[2017-07-10] MEDS ORDERED: CLOT15CR35 TP (17:00)
[2017-07-10] MEDS ORDERED: ESCI10TA PO (17:00)
[2017-07-10] MEDS ORDERED: ALBU2.5V13 NEB (17:00)
[2017-07-10] MEDS ORDERED: QUET25TA PO (17:00)
[2017-07-10] MEDS ORDERED: IPRA0.2S9 NEB (17:00)
[2017-07-10] MEDS ORDERED: HYDR-548 PO (18:35)
--- NOTE | 2017-07-10 19:15 | NUR ---
REPORTING DEVELOPER NOTES DISCHARGED PATIENT IN STABLE CONDITION PICKED UP BY AMBULANCE, DISCHARGE PAPERWORK GIVEN TO group managing director. REPORT GIVEN TO ANA M DUCKWORTH AT [facility], DISCHARGE INSTRUCTIONS GIVEN, VERBALIZED UNDERSTANDING. PATIENT'S FRIEND NOTIFIED. REMOVE IV, APPLIED PRESSURE, NO BLEEDING, NO COMPLICATION. REMOVED NAME BAND. PATIENT REFUSED SKIN PHOTOS, STATING "JUST LEAVE ME ALONE".
== END 2017-07-10 19:15 | DRG 535 ==
LOC: ER 17:14 → MEDSG2 20:44 → MED 07-08 00:01 → TELE 07-08 00:05 → MED 07-08 11:07 → MEDSG2 07-08 20:35
PROVIDERS: ADMIT Nurse Practitioner Acute Care; ATTEND Nurse Practitioner Acute Care
DX: S72.142A Displaced intertrochanteric fracture of left femur, initial encounter for closed fracture (principal); J96.01 Acute respiratory failure with hypoxia; J15.9 Unspecified bacterial pneumonia; I27.20 Pulmonary hypertension, unspecified; I11.0 Hypertensive heart disease with heart failure; E87.1 Hypo-osmolality and hyponatremia; E83.42 Hypomagnesemia; F03.91 Unspecified dementia, unspecified severity, with behavioral disturbance; I50.32 Chronic diastolic (congestive) heart failure; J98.11 Atelectasis; J44.9 Chronic obstructive pulmonary disease, unspecified; W18.30XA Fall on same level, unspecified, initial encounter; Y92.481 Parking lot as the place of occurrence of the external cause; Z87.891 Personal history of nicotine dependence; D50.9 Iron deficiency anemia, unspecified; F32.9 Major depressive disorder, single episode, unspecified; F29 Unspecified psychosis not due to a substance or known physiological condition; Y93.89 Activity, other specified
CPT/HCPCS: 36415; 71045-TC; 73502; 80048-TC; 80061-TC; 81000-TC; 82728-TC; 82962-TC; 83540-TC; 83735-TC; 83880; 84100-TC; 84439-TC; 84443-TC; 84484-TC; 85025-TC; 85730-TC; 87081-TC; 87086-TC; 87400; 93307-TC; 93971-TC; 94799-TC; A4216; A4606; J1200; J1631; J1650; J1940; J1956; J2270; J2405; J2916; J3475; J7030; J7050; Z7610